=== PATIENT | male | born 1960 | race Two or more races ===

== ENCOUNTER 2022-05-30 11:41 | Inpatient (IN) | payer OTHER ==
[~2022-05-30] VITALS: Ht 175.3 cm; Wt 102.6 kg
[2022-05-30 13:01] LABS: Eosinophils # (auto) 0.2 10 ^3/uL (0-0.8)
[2022-05-30 13:03] LABS: Basophils # (auto) 0.1 10 ^3/uL (0-0.2); Basophils % (auto) 1.3 % (0.0-2.0); Eosinophils % (auto) 2.2 % (0.0-7.0); Hematocrit 35.4 % (41.0-53.0); Hemoglobin 11.6 g/dL (13.5-17.5); Lymphocytes # (auto) 1.6 10 ^3/uL (0.4-5.4); Lymphocytes % (auto) 23.4 % (10.0-50.0); Mean Corpuscular Hemoglobin 26.6 pg (28.0-32.0); Mean Corpuscular Hgb Conc. 32.7 g/dL (32.0-36.0); Mean Corpuscular Volume 81.5 fL (80.0-100.0); Monocytes # (auto) 0.4 10 ^3/uL (0-1.3); Monocytes % (auto) 6.4 % (0.0-12.0); Neutrophils # (auto) 4.7 10 ^3/uL (1.6-8.6); Neutrophils % (auto) 66.7 % (37.0-80.0); Red Blood Cells 4.34 10^6/uL (4.5-5.90); Red Cell Distribution Width 14.9 % (11.8-14.3)
[2022-05-30 13:26] LABS: Albumin 3.8 g/dL (3.4-5.0); BUN/Creatinine Ratio 15.2; Calcium 9.1 mg/dL (8.5-10.1); Potassium 4.5 mmol/L (3.5-5.1)
[2022-05-30 13:28] LABS: Bilirubin, Total 0.3 mg/dL (0.2-1.0); Total Protein 8.3 g/dL (6.4-8.2)
[2022-05-30] MEDS ORDERED: SODIUM CHLORIDE 0.9% 1,000 ML IV ONE (13:45)
[2022-05-30] MEDS ORDERED: LACTATED RINGER'S 1,000 ML IV ONE (13:45)
[2022-05-30] MEDS ORDERED: InsuLIN REG 1unit/0.01ml Soln (100units/ml) SC ONE (17:30)
[2022-05-30] MEDS ORDERED: MORPHINE SULFATE INJ 2 MG/ml SYRG IV PRN (18:15)
[2022-05-30] MEDS ORDERED: HYDROcodone-ACET 10/325MG TAB PO PRN (18:15)
[2022-05-30] MEDS ORDERED: DEXTROSE (50%) 50ML SYRG IV PRN (18:15)
[2022-05-30] MEDS ORDERED: NITROGLYCERIN 0.4 MG SL TAB SL PRN (18:15)
[2022-05-30] MEDS ORDERED: CHLO25TA2 PO (18:35)
[2022-05-30] MEDS ORDERED: TAMS0.4C36 PO (18:35)
[2022-05-30] MEDS: SOD CHL 0.45% 1,000 ML IV SCH (19:30)
[2022-05-30] MEDS: ACCU-CHEK COMFORT CURVE STRIP VI SCH (22:25)
[2022-05-30] MEDS: InsuLIN REG 1unit/0.01ml Soln (100units/ml) SC SCH (22:25)
[2022-05-30 22:29] VITALS: BP 138/75
[2022-05-31 05:00] VITALS: BP 138/77
[2022-05-31] MEDS: SOD CHL 0.45% 1,000 ML IV SCH ×2 (05:28→14:15)
[2022-05-31] MEDS: InsuLIN REG 1unit/0.01ml Soln (100units/ml) SC SCH ×4 (06:21→21:38)
[2022-05-31] MEDS: ACCU-CHEK COMFORT CURVE STRIP VI SCH ×4 (06:21→21:38)
[2022-05-31 08:06] LABS: BUN/Creatinine Ratio 15.7; Calcium 8.8 mg/dL (8.5-10.1); Potassium 4.3 mmol/L (3.5-5.1)
[2022-05-31] MEDS ORDERED: ADENOSINE 84 MG in GIVE UN-DILUTED 0 ML IV ONE (08:30)
[2022-05-31 08:54] VITALS: BP 155/87
[2022-05-31] MEDS: Chlorthalidone 25 MG TABLETS PO SCH (10:00)
[2022-05-31] MEDS: PANTOPRAZOLE 40 MG TAB PO SCH (11:21)
[2022-05-31] MEDS: ASPirin-EC 81 mg tab PO SCH (11:21)
[2022-05-31] MEDS: LOSARTAN POTASSIUM 50 MG TAB PO SCH (11:23)
[2022-05-31] MEDS: TAMSULOSIN HYDROCHLORIDE 0.4 MG CAP PO SCH (11:23)
[2022-05-31] MEDS: ENOXAPARIN SOD 40 MG/0.4 ML SYRINGE SC SCH (11:28)
[2022-05-31 12:46] VITALS: BP 166/91
[2022-05-31 17:57] VITALS: BP 129/72
[2022-05-31 22:00] VITALS: BP 115/76
[2022-06-01] MEDS: SOD CHL 0.45% 1,000 ML IV SCH ×2 (04:26→08:40)
[2022-06-01 05:00] VITALS: BP 117/68
[2022-06-01] MEDS: InsuLIN REG 1unit/0.01ml Soln (100units/ml) SC SCH ×3 (06:29→18:19)
[2022-06-01] MEDS: ACCU-CHEK COMFORT CURVE STRIP VI SCH ×3 (07:00→18:18)
[2022-06-01 07:30] VITALS: BP 128/70
[2022-06-01] MEDS ORDERED: IOHEXOL 350 MG/ML 100ML IJ ONE (07:35)
[2022-06-01] MEDS: LOSARTAN POTASSIUM 50 MG TAB PO SCH (08:38)
[2022-06-01] MEDS: Chlorthalidone 25 MG TABLETS PO SCH (08:38)
[2022-06-01] MEDS: ASPirin-EC 81 mg tab PO SCH (08:39)
[2022-06-01] MEDS: TAMSULOSIN HYDROCHLORIDE 0.4 MG CAP PO SCH (08:39)
[2022-06-01] MEDS: ENOXAPARIN SOD 40 MG/0.4 ML SYRINGE SC SCH (08:40)
[2022-06-01] MEDS: PANTOPRAZOLE 40 MG TAB PO SCH (08:40)
[2022-06-01 09:00] VITALS: BP 128/70
[2022-06-01 13:00] VITALS: BP 143/88
[2022-06-01 17:00] VITALS: BP_SYST 132; BP_SYST 149; BP_DIAS 84; BP_DIAS 89
[2022-06-01 18:53] VITALS: BP 128/70
== END 2022-06-01 19:00 | DRG 206 ==
LOC: ER 11:41 → EEVIPCON 11:41 → TELE 18:06 → TELE-WESTW 21:40
PROVIDERS: ADMIT Internal Medicine; ATTEND Internal Medicine
DX: R09.02 Hypoxemia (principal); N17.9 Acute kidney failure, unspecified; U09.9 Post COVID-19 condition, unspecified; E86.0 Dehydration; E11.65 Type 2 diabetes mellitus with hyperglycemia; F17.210 Nicotine dependence, cigarettes, uncomplicated; I10 Essential (primary) hypertension; Z20.822 Contact with and (suspected) exposure to COVID-19; R00.0 Tachycardia, unspecified; R07.9 Chest pain, unspecified; Z28.310 Unvaccinated for COVID-19; Z82.49 Family history of ischemic heart disease and other diseases of the circulatory system; Z83.3 Family history of diabetes mellitus
CPT/HCPCS: 36415; 36600; 71045; 71275; 78452; 80048; 80053; 82805; 82962; 83735; 83880; 84443; 84484; 85025; 85379; 93005; 93306; 96360; 96361; 96372; G0378; J0153; J1815